=== PATIENT | female | born 2000 | race African-American/Black ===

== ENCOUNTER 2018-11-29 09:28 | Emergency (ER) | payer SELFPAY ==
[~2018-11-29] VITALS: Ht 162.6 cm; Wt 100.0 kg
[2018-11-29 13:10] VITALS: BP 128/66
== END 2018-11-29 13:30 | disposition home or self-care (01) ==
LOC: EDBD 09:28 → ER 09:28
DX: S60.455A Superficial foreign body of left ring finger, initial encounter (principal); W45.8XXA Other foreign body or object entering through skin, initial encounter; Y93.89 Activity, other specified; Y92.018 Other place in single-family (private) house as the place of occurrence of the external cause
CPT/HCPCS: 99284; Z7610

== ENCOUNTER 2025-05-24 21:25 | Emergency (ER) | payer BC, OTHER ==
[~2025-05-24] VITALS: Ht 167.6 cm; Wt 137.8 kg
[2025-05-24 21:35] VITALS: O2SAT 100
[2025-05-24] MEDS: PROPRANOLOL HCL 10MG TABLET PO ONE (23:07)
[2025-05-24 23:21] LABS: BASOPHILS % 0.9 % (0.0-2.0); EOSINOPHILS % 0.7 % (0.0-5.0); HEMATOCRIT. 37.6 % (36.0-48.0); HEMOGLOBIN. 12.0 g/dL (12.0-16.0); LYMPHOCYTES % 32.9 % (20.0-50.0); MEAN PLATELET VOLUME 8.2 fl (7.4-10.4); MONOCYTES % 10.1 % (2.0-8.0); NEUTROPHILS % 55.4 % (40.0-76.0); PLATELET 271 x1000/uL (130-400); RED BLOOD CELL COUNT 4.10 mill/uL (4.2-5.4); RED CELL DISTRIBUTION WIDTH 13.2 % (11.6-14.6)
[2025-05-24 23:26] LABS: CREATININE 0.9 mg/dL (0.6-1.0); UREA NITROGEN BLOOD 9 mg/dL (9-23)
[2025-05-24 23:27] LABS: PROTEIN TOTAL 7.5 g/dL (6.0-8.3); TROPONIN I HIGH SENSITIVITY < 4 ng/L (3.0-34)
[2025-05-24 23:28] LABS: ASPARTATE AMINOTRANSFERASE 25 IU/L (<34); BILIRUBIN DIRECT < 0.1 mg/dL (<=3.0)
[2025-05-24 23:29] LABS: BILIRUBIN TOTAL 0.2 mg/dL (0.1-1.0)
[2025-05-24 23:33] LABS: T4 FREE 1.09 ng/dL (0.89-1.76)
[2025-05-24] MEDS ORDERED: HYDR453.3 TP (23:44)
[2025-05-24] MEDS ORDERED: BO1 TP (23:44)
[2025-05-24] MEDS ORDERED: PROP10TA10 MT (23:44)
[2025-05-25 00:05] VITALS: BP 161/109; PULSE 90; RESP 16; TEMP 36.9; O2SAT 95
== END 2025-05-25 00:16 | disposition home or self-care (01) ==
LOC: ER 21:25
DX: R21 Rash and other nonspecific skin eruption (principal); I10 Essential (primary) hypertension; R06.02 Shortness of breath; Z79.899 Other long term (current) drug therapy
CPT/HCPCS: 36415; 71045; 80048; 80076; 83880; 84439; 84443; 84481; 84484; 85025; 93005; 99285